=== PATIENT | female | born 1975 | race Caucasian/White ===

== ENCOUNTER → 2017-07-17 | Outpatient (CLI) | payer MEDICARE, MEDICAID ==
[2017-06-08 08:41] VITALS: BMI 35.5
[~2017-07-17] MED LIST: ACE500 PO; ACET-1966 PO; ACET-2043 PO; ASPI-715 PO; BAC10 PO; BISA-236 RC; BO30S PR; CALC-495 PO; CALC-520 PO; CEFT1VIA52 IM; CEFU250T11 PO; CEPH-312 PO; CEPH500T7 PO; CETI-169 PO; CHLO15MO2 MM; CHLO1LIQ2 PO; CHOL10005 PO; CHOL100058 PO; CRAN450C PO; DEXLAN60PT PO; DEXT1DRO15 OU; DIA10 PO; DIAZ-311 PO; DULO60CA56 PO; ESCI20TA38 PO; FENT1PAT12 TD; FENT1PAT40 TD; FLUT16SP19 NS; GAB300 PO; GABA-547 PO; GABA-549 PO; IBUP600T22 PO; IMIP10TA17 PO; LACT100C2 PO; LACT1CAP64 PO; LEV500 PO; LEVO-85 PO; LEVO750T27 PO; LEVO750T44 PO; LORA-629 PO; LORA-630 PO; LORA-799 PO; MAGIC PO; MEDR150D IM; MELO-205 PO; MIRT-22 PO; MOM PO; MOX400 PO; MULT-1203 PO; MULT-1335 PO; NIT100 PO; NORE0.3520 PO; NYST60PO9 TP; OMEP-125 PO; ONDA4TAB PO; ONDA4TAB97 PO; ONDA8TAB97 PO; ONDA8TAB98 PO; OXY5 PO; OXYB5TAB80 PO; OXYB5TAB86 PO; OXYC-373 PO; OXYC10TA67 PO; OXYIR PO; OXYXL5 PO; PANT40TA13 PO; POLY119P28 PO; POLY17PO25 PO; POTA-53 PO; PREG75CA60 PO; RANI-445 PO; SERT-179 PO; SODI126M; TRAZ-133 PO; WARF-18 PO; WARF10TA34 PO; WARF4TAB54 PO; WARF6TAB36 PO; [UNRECOGNIZED DRUG - CODE] FT; [UNRECOGNIZED DRUG - CODE] PO; [UNRECOGNIZED DRUG - CODE] PO; [UNRECOGNIZED DRUG - CODE] PO; [UNRECOGNIZED DRUG - CODE] TP
== END ==
LOC: AMB 04:45
PROVIDERS: ATTEND Nurse Practitioner
DX: J18.9 Pneumonia, unspecified organism (principal); G82.50 Quadriplegia, unspecified
CPT/HCPCS: A0425; A0428

== ENCOUNTER → 2017-07-17 | Outpatient (CLI) | payer MEDICARE, MEDICAID ==
[2017-06-08 08:41] VITALS: BMI 35.5
== END ==
LOC: AMB 01:43
PROVIDERS: ATTEND Nurse Practitioner
DX: R09.02 Hypoxemia (principal); R53.81 Other malaise; Z87.440 Personal history of urinary (tract) infections; Z74.01 Bed confinement status
CPT/HCPCS: A0425; A0429

== ENCOUNTER 2017-12-24 18:17 | Emergency (ER) | payer MEDICARE, MEDICAID ==
[2017-06-08 08:41] VITALS: Wt 83.9 kg
[~2017-12-24 18:17] MED LIST changes: -CETI-176 PO; -[UNRECOGNIZED DRUG - CODE] TP
--- NOTE | 2017-12-24 18:34 | ER Report ---
History and Physical Time Seen By MD: 18:30 Hx. of Stated Complaint: PATIENT HAS SEVERAL LACERATIONS FROM HER UNDERWIRE BRA, HER DOCTOR WANTED HER TO BE CHECKED OUT. HPI/ROS CHIEF COMPLAINT: Skin breakdown HISTORY OF PRESENT ILLNESS: This is a 41-year-old female, a resident of the [facility] who is transported via EMS to the emergency department for concerns of skin breakdown. According to [facility] staff the patient had an underwire bra that cut into her skin. Patient is a quadriplegic and has no sensation. No other concerns at this time no nausea, vomiting, diarrhea, shortness of breath or chest pain. REVIEW OF SYSTEMS: Respiratory: No cough, no dyspnea. Cardiovascular: No chest pain, no palpitations. Gastrointestinal: No vomiting, no abdominal pain. Musculoskeletal: No back pain. Integumentary: As above. Allergies: Coded Allergies: sulfamethoxazole (Verified Allergy, Mild, RASH, 12/24/17) trimethoprim (Verified Allergy, Mild, RASH, 12/24/17) piperacillin (Verified Adverse Reaction, Mild, reddness to face and neck, 12/24/17) tazobactam (Verified Adverse Reaction, Mild, reddness to face and neck, ) Home Meds Active Scripts Oxycodone Hcl/Acetaminophen (OXYCODONE-ACETAMINOPHEN 5-325) 1 Each Tablet, 1 EACH PO QID Y for pain, #120 TAB Prov:ESTELITA RICHARDS APRNP-C 12/10/17 Pregabalin (LYRICA) 75 Mg Capsule, 1 CAP PO BID, #60 CAPSULE 5 Refills Prov:ESTELITA RICHARDS APRN IT ARCHITECTURE ANALYST-C 12/07/17 Fentanyl (Fentanyl) 1 Each Patch.td72, 75 MCG TD Q72H, #10 PATCH.72H Prov:ESTELITA RICHARDS APRN IT ARCHITECTURE ANALYST-C 12/04/17 Belladonna Alkaloids/Opium (BELLADONNA-OPIUM 16.2-30 SUPP) 30 Mg Supp, 30 MG MN BID Y for pain/spasm, #60 SUPP Prov:ESTELITA RICHARDS APRN IT ARCHITECTURE ANALYST-C 12/02/17 Diazepam (DIAZEPAM) 10 Mg Tablet, 10 MG PO TID, #90 TAB 3 Refills Prov:ESTELITA RICHARDS APRN IT ARCHITECTURE ANALYST-C 09/28/17 Meloxicam (MELOXICAM) 7.5 Mg Tablet, 7.5 MG PO QDAY Y for pain, #0 Prov:JOEY CARPENTER MD 03/28/16 Reported Medications Miconazole Nitrate (DIANNA ANTIFUNGAL) 142 Gm Cream..g., 1 EMMANUEL TP PRN 12/24/17 Cetirizine Hcl (ZYRTEC) 10 Mg Tablet, 5 MG PO QDAY, TAB 12/24/17 Ondansetron (ZOFRAN ODT) 4 Mg Tab.rapdis, 4 MG PO PRN, TAB.KWADWO 07/13/17 Medroxyprogesterone Acet 150 Mg (DEPO-PROVERA 150 MG) 150 Mg/1 Ml Disp.syrin, 150 MG IM 07/13/17 Imipramine Hcl (IMIPRAMINE HCL) 10 Mg Tablet, 20 MG PO HS 06/07/17 Multivitamin With Minerals (MULTIPLE VITAMIN) 1 Each Tablet, 1 EACH PO QDAY, TAB 06/07/17 Cholecalciferol (Vitamin D3) (VITAMIN D3) 1,000 Unit Tablet, 2000 UNIT PO QDAY, TAB 06/07/17 Bisacodyl (DULCOLAX) 10 Mg Supp.rect, 10 MG RC QODAY Y for CONSTIPATION, SUPP.RECT 03/26/16 Acetaminophen (TYLENOL) 325 Mg Tablet, 650 MG PO Q6H Y for PAIN, TAB 03/26/16 Oxybutynin Chloride (OXYBUTYNIN CHLORIDE ER) 5 Mg Tab.er.24, 5 MG PO QDAY, TAB.SA 03/26/16 Duloxetine Hcl (CYMBALTA) 60 Mg Capsule.dr, 60 MG PO QDAY, #5 CAP 03/24/16 Lactobacillus Acidophilus (Acidophilus) 100 Mg (1 Billion Cell) Capsule, 1 TAB PO BID 10/26/15 Nystatin (NYSTOP) 60 Gm Powder, 1 GM TP 09/25/14 Polyethylene Glycol 3350 (MIRALAX) 17 Gm Powd.pack, 17 GM PO DAILY 09/25/14 Omeprazole (OMEPRAZOLE) 20 Mg Capsule.dr, 1 CAP PO Q MON-WED-THU TAKE ONE CAPSULE BY MOUTH ONCE A DAY 05/30/13 Baclofen (Lioresal) 10 Mg Tab, 20 MG PO TID 09/01/12 Discontinued Reported Medications Cran/Vitc/Mannose/Inulin/Brom (UTI-STAT LIQUID) 3,875 Mg/30 Ml Liquid, 3875 MG PO BID 06/07/17 Cranberry Fruit Concentrate (CRANBERRY) 450 Mg Capsule, 450 MG PO TID, CAPSULE 06/07/17 Escitalopram Oxalate (LEXAPRO) 20 Mg Tablet, 10 MG PO QDAY, TAB 06/07/17 Loratadine (LORATADINE) 10 Mg Tablet, 10 MG PO QDAY 03/26/16 Norethindrone (TIP-BE) 0.35 Mg Tablet, 0.35 MG PO DAILY 09/26/14 Discontinued Scripts Cefuroxime Axetil (CEFUROXIME) 250 Mg Tablet, 250 MG PO BID for infection, #14 TAB Prov:GUZMAN GONZALEZ DO 07/17/17 Levofloxacin 750 Mg Tab (LEVAQUIN 750 MG TAB) 750 Mg Tablet, 750 MG PO DAILY, # 7 TAB 0 Refills Prov:MARCIE WAHL MD 06/09/17 Past Medical/Surgical History Patient has a past medical and surgical history of DVTs, a trach secondary to quadriplegia, PEG tube, neurogenic bladder, suprapubic catheter, frequent urinary tract infections, C5-C6 fracture, wears glasses as needed, history of decubitus ulcers, depression, anorexia, anxiety, cervical spine surgery. Reviewed Nurses Notes: Yes Hx Smoking: Yes Smoking Status: Former Smoker Exposure to Second Hand Smoke?: No Hx Substance Use Disorder: No Hx Alcohol Use: No Constitutional Vital Sign - Last 24 Hours 12/24/17 12/24/17 12/24/17 12/24/17 18:21 18:23 18:30 18:32 Temp 99.2 Pulse 96 92 Resp 16 B/P (MAP) 124/74 124/74 (91) 105/54 (71) Pulse Ox 91 85 O2 Delivery Room Air 12/24/17 12/24/17 12/24/17 12/24/17 19:00 19:30 20:00 20:30 Pulse ??? B/P (MAP) 99/60 (73) 107/69 (82) 93/54 (67) 96/50 (65) Physical Exam General Appearance: The patient is alert, has no immediate need for airway protection and no current signs of toxicity. Eyes: Pupils equal and round no injection. Respiratory: Chest is non tender, lungs are clear to auscultation. Cardiac: regular rate and rhythm. Gastrointestinal: Abdomen is soft and non tender, no masses, bowel sounds normal. Musculoskeletal: Neck: Neck is supple and non tender. Extremities have full range of motion and are non tender. Skin: Mild fungal infection under both lateral breasts with redness and some excoriation. There is a 10cm long area of breakdown under the right breast, with adipose tissue and what appears to be facia exposed, linear in fashion, following the contour under the breast. There is a 5cm long, linear in fashion, under the left breast, not as extensive as the right, penetrating into the subcutaneous tissue. There are no signs of cellulitis. DIFFERENTIAL DIAGNOSIS: After history and physical exam differential diagnosis was considered for fungal infection, decubitus ulcer, skin breakdown and cellulitis. Medical Decision Making ED Course/Re-evaluation ED Course The patient was admitted to a room. A history and physical were obtained. Differential diagnoses were considered. After discussion with patient she didn' t have any idea that there were some areas of concern under her breasts until tonight. The physical exam revealed candidiasis under the breasts bilaterally with some potentially significant skin breakdown that appears to have been developing for some time, no signs of cellulitis. There is an area underneath both breasts that are very concerning for ulcerations and I did tell the patient that she will need to follow-up with the wound care clinic at the hospital for further evaluation and treatment of the skin breakdown. This was written the patient's discharge instructions and will care center must follow -up with the wound clinic tomorrow. I did not want to add a skin barrier or powder for the with the yeast infection underneath the breasts, as I was concerned that this would complicate the wound healing. We did dry the moist areas underneath the breasts, ABD pads were placed underneath the breast to absorb moisture. This does not appear to be the underwire from the bra cutting into the skin. This appears to be an area that has been breaking down for some time. The patient had no further questions or concerns at this time and was transferred back to the [facility]. A written order was sent with patient for the wound care clinic treatment and evaluation. The patient had no other concerns at this time. Decision to Disposition Date: December 24, 2017 Decision to Disposition Time: 20:09 Depart Departure Latest Vital Signs Vital Signs Date Time Temp Pulse Resp B/P (MAP) Pulse Ox O2 Delivery O2 Flow Rate FiO2 12/24/17 20:30 ??? 96/50 (65) 12/24/17 18:32 85 12/24/17 18:21 99.2 16 Room Air Impression: Primary Impression: Candidiasis of breast Additional Impression: Skin breakdown Condition: Improved Disposition: ASSISTED LIVING FACILITY Patient Instructions: Skin Yeast Infection (ED) Additional Instructions: Drink plenty of water. Get plenty of rest. Follow up with [facility] wound care first thing in the morning 12/25/17, the staff at [facility] must call first thing in the morning, tell them you were seen and evaluated in the ED and need to follow up tomorrow. Wound care phone number, the same as physical therapy, [phone]. There is no need for antibiotics at this time. I do not want to add an antifungal until you are evaluated by the wound care team at which time your primary care provider may become involved and order something if the wound care team feels it is warranted. Keep the areas of the breast dry and exposed to air to help with the fungal infection. No bra or tightfitting clothing over the breasts. Continue current medications as directed. Return to the ED for any other concerns or worsening symptoms. Problem Qualifiers JULIÁN BISWAS-SHARON December 24, 2017 18:34
[2017-12-24 20:30] VITALS: BP 96/50
[2017-12-24] MEDS ORDERED: [UNRECOGNIZED DRUG - CODE] TP (20:41)
[2017-12-24] MEDS ORDERED: CETI-176 PO (20:41)
== END 2017-12-24 20:38 | disposition home or self-care (01) ==
LOC: ER 18:24
DX: B37.2 Candidiasis of skin and nail (principal); L98.8 Other specified disorders of the skin and subcutaneous tissue
CPT/HCPCS: 99282

== ENCOUNTER → 2017-12-24 | Outpatient (CLI) | payer MEDICARE, MEDICAID ==
[2017-06-08 08:41] VITALS: BMI 35.5
[~2017-12-24] MED LIST changes: +CETI-176 PO; -WARF-18 PO; +WARF10TA10 PO; -WARF10TA34 PO; +WARF4TAB15 PO; -WARF4TAB54 PO; +WARF5TAB23 PO; +WARF6TAB13 PO; -WARF6TAB36 PO; +[UNRECOGNIZED DRUG - CODE] TP
== END ==
LOC: AMB 17:58
PROVIDERS: ATTEND Nurse Practitioner
DX: S21.0 Open wound of breast (principal); S21.021A Laceration with foreign body of right breast, initial encounter; S27.9XXA Injury of unspecified intrathoracic organ, initial encounter; W45.8XXA Other foreign body or object entering through skin, initial encounter
CPT/HCPCS: A0425; A0434

== ENCOUNTER → 2017-12-24 | Outpatient (CLI) | payer MEDICARE, MEDICAID ==
[2017-06-08 08:41] VITALS: BMI 35.5
== END ==
LOC: AMB 20:32
PROVIDERS: ATTEND Nurse Practitioner
DX: Z74.01 Bed confinement status (principal)
CPT/HCPCS: A0425; A0428

== ENCOUNTER → 2017-12-25 | Outpatient (REF) | payer MEDICARE, MEDICAID ==
[2017-06-08 08:41] VITALS: BMI 35.5
[~2017-12-25] MED LIST changes: +CETI-176 PO; +[UNRECOGNIZED DRUG - CODE] TP
== END ==
LOC: ZZLCC 17:15
PROVIDERS: ATTEND Nurse Practitioner Family
DX: D64.9 Anemia, unspecified (principal); E87.6 Hypokalemia; G62.9 Polyneuropathy, unspecified; N18.9 Chronic kidney disease, unspecified
CPT/HCPCS: 82040; 82247; 82310; 82374; 82435; 82565; 82947; 84075; 84132; 84155; 84295; 84450; 84460; 84520

== ENCOUNTER → 2018-01-15 | Outpatient (REF) | payer MEDICARE, MEDICAID ==
[2017-06-08 08:41] VITALS: BMI 35.5
== END ==
LOC: ZZLCC 17:54
PROVIDERS: ATTEND Nurse Practitioner Family
DX: N39.0 Urinary tract infection, site not specified (principal); B96.20 Unspecified Escherichia coli [E. coli] as the cause of diseases classified elsewhere; B96.89 Other specified bacterial agents as the cause of diseases classified elsewhere
CPT/HCPCS: 81001; 87077; 87088; 87186

== ENCOUNTER → 2018-02-25 | Outpatient (REF) | payer MEDICARE, MEDICAID ==
[2017-06-08 08:41] VITALS: BMI 35.5
[2018-02-25 15:34] LABS: PLATELET COUNT, AUTOMATED 343 K/uL (150-450)
[2018-02-25 15:46] LABS: LDL CHOLESTEROL 82 mg/dl
== END ==
LOC: ZZLCC 15:17
PROVIDERS: ATTEND Nurse Practitioner Family
DX: D64.9 Anemia, unspecified (principal); E87.6 Hypokalemia; F32.9 Major depressive disorder, single episode, unspecified; F41.9 Anxiety disorder, unspecified; G62.9 Polyneuropathy, unspecified; H04.129 Dry eye syndrome of unspecified lacrimal gland; I82.409 Acute embolism and thrombosis of unspecified deep veins of unspecified lower extremity; J18.9 Pneumonia, unspecified organism; J30.9 Allergic rhinitis, unspecified; K21.9 Gastro-esophageal reflux disease without esophagitis; K59.00 Constipation, unspecified; M24.576 Contracture, unspecified foot; N18.9 Chronic kidney disease, unspecified; N39.0 Urinary tract infection, site not specified; R25.1 Tremor, unspecified; R27.9 Unspecified lack of coordination; R41.82 Altered mental status, unspecified; R51 Headache; R53.1 Weakness; R63.4 Abnormal weight loss; R79.1 Abnormal coagulation profile
CPT/HCPCS: 82040; 82247; 82310; 82374; 82435; 82465; 82565; 82947; 83718; 84075; 84132; 84155; 84295; 84450; 84460; 84478; 84520; 85025

== ENCOUNTER → 2018-05-06 | Outpatient (REF) | payer MEDICARE, MEDICAID ==
[2017-06-08 08:41] VITALS: BMI 35.5
== END ==
LOC: ZZLCC 08:50
PROVIDERS: ATTEND Nurse Practitioner Family
DX: R73.01 Impaired fasting glucose (principal)
CPT/HCPCS: 83036

== ENCOUNTER → 2018-08-01 | Outpatient (CLI) | payer MEDICARE, MEDICAID ==
[2017-06-08 08:41] VITALS: BMI 35.5
[~2018-08-01] MED LIST changes: +DIAZ-308 PO
== END ==
LOC: AMB 13:45
PROVIDERS: ATTEND Nurse Practitioner
DX: T83.028A Displacement of other urinary catheter, initial encounter (principal); G82.50 Quadriplegia, unspecified
CPT/HCPCS: A0425; A0429

== ENCOUNTER → 2018-08-01 | Outpatient (CLI) | payer MEDICARE, MEDICAID ==
[2017-06-08 08:41] VITALS: BMI 35.5
== END ==
LOC: AMB 15:31
PROVIDERS: ATTEND Nurse Practitioner
DX: G82.50 Quadriplegia, unspecified (principal)
CPT/HCPCS: A0425; A0428

== ENCOUNTER → 2018-09-02 | Outpatient (CLI) | payer MEDICARE, MEDICAID ==
[2017-06-08 08:41] VITALS: BMI 35.5
== END ==
LOC: AMB 09:39
PROVIDERS: ATTEND Nurse Practitioner
DX: G82.50 Quadriplegia, unspecified (principal)
CPT/HCPCS: A0425; A0428

== ENCOUNTER → 2018-12-27 | Outpatient (REF) | payer MEDICARE, MEDICAID ==
[2017-06-08 08:41] VITALS: BMI 35.5
[2018-12-27 17:35] LABS: PLATELET COUNT, AUTOMATED 352 K/uL (150-450)
== END ==
LOC: ZZLCC 16:46
PROVIDERS: ATTEND Nurse Practitioner Family
DX: R73.01 Impaired fasting glucose (principal); R51 Headache; Z79.899 Other long term (current) drug therapy
CPT/HCPCS: 82040; 82247; 82310; 82374; 82435; 82565; 82947; 83036; 84075; 84132; 84155; 84295; 84443; 84450; 84460; 84520; 85025

== ENCOUNTER 2019-01-15 18:27 | Inpatient (IN) | payer MEDICARE, MEDICAID ==
[~2019-01-15] VITALS: Ht 157.5 cm; Wt 95.8 kg
[~2019-01-15 18:27] MED LIST changes: -BACL-51 PO; -CEF300 PO; -CETI5TAB25 PO; -CHLO473M14 ASDIRECTED; -DULO30CA6 PO; -LACT1CAP17 PO; -SODI51CR DT; -TRIA10.8
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
[2019-01-15] MEDS ORDERED: NS(*) 0.9% 1000 ML BAG 1,000 ML IV ONE ×2 (18:50→19:50)
--- NOTE | 2019-01-15 19:16 | RADIOLOGY IMAGING REPORT ---
[place] [facility] [place] NAME: Nilo Witt : 1975 MR: [id number] V: [id number] EXAM DATE: ORDERING PHYSICIAN: EULALIA SANDERS TECHNOLOGIST: [place] [facility] [place] : 1975 Visit/Account:[id number] Date of Sevice: 01/15/2019 Exam type: CHEST SINGLE AP History: Altered mental status Comparison: 09/02/2018. Findings: Opacification at the left lung base appears stable from prior. Interstitial markings are prominent b ut appear to be chronic. Right lung is well-expanded. No pleural effusion or pneumothorax. Heart is enlarged. The osseous structures are unremarkable. IMPRESSION: 1. Opacification of left lung base appears to be chronic. No evidence for acute cardiopulmonary dis ease. 2. Cardiomegaly and pulmonary vascular prominence also appears chronic. Report Dictated By: Sunil Garcia MD at 01/15/2019 7:09 PM Report E-Signed By: Sunil Garcia MD at 01/15/2019 7:12 PM WSN:[id number]
[2019-01-15 19:24] LABS: PLATELET COUNT, AUTOMATED 267 K/uL (150-450)
[2019-01-15] MEDS ORDERED: NS 0.9% IVPB ONE ×2 (19:50→20:15)
[2019-01-15] MEDS ORDERED: CEFEPIME HCL IVPB ONE (19:50)
[2019-01-15] MEDS ORDERED: MINI IVPB ONE (19:50)
[2019-01-15] MEDS ORDERED: VANCOMYCIN(*) 1 GM VIAL 2.25 GM in NS(*) 0.9% 250 ML BAG 250 ML IVPB ONE (19:50)
[2019-01-15] MEDS ORDERED: VANCOMYCIN IVPB ONE (20:15)
[2019-01-15] MEDS ORDERED: MEDR150D IM (20:30)
[2019-01-15] MEDS ORDERED: CETI5TAB25 PO (20:30)
[2019-01-15] MEDS ORDERED: CHLO473M14 ASDIRECTED (20:30)
[2019-01-15] MEDS ORDERED: BACL-51 PO (20:38)
[2019-01-15] MEDS ORDERED: TRIA10.8 (20:38)
[2019-01-15] MEDS ORDERED: DULO30CA6 PO (20:38)
[2019-01-15] MEDS ORDERED: LACT1CAP17 PO (20:38)
[2019-01-15] MEDS ORDERED: SODI51CR DT (20:40)
[2019-01-15] MEDS ORDERED: ACETAMINOPHEN(*)1000 MG/100 ML 100 ML IVPB ONE (21:05)
[2019-01-15] MEDS ORDERED: MORPHINE 4 MG/ML SDV IVP ONE (21:55)
[2019-01-15] MEDS ORDERED: fentaNYL 25 MCG TDSY TD SCH (22:10)
[2019-01-15] MEDS ORDERED: fentaNYL 50 MCG TDSY TD SCH (22:10)
[2019-01-15] MEDS ORDERED: BISACODYL 10 MG SUPP PR PRN (22:10)
[2019-01-15] MEDS ORDERED: INFLUENZA VIRUS VAC 0.5ML SYR IM ONLY ONE (22:20)
[2019-01-15 22:24] VITALS: BP 82/62
[2019-01-15] MEDS ORDERED: PATCH REMOVAL 1 EA TP SCH ×3 (22:30→22:35)
[2019-01-15 22:42] VITALS: BP 77/50
--- NOTE | 2019-01-15 23:04 | History & Physical ---
History of Present Illness Chief Complaint Change in mental status. History of Present Illness The patient is a 43 year old female resident of [facility] ([facility]) with PMH significant for quadriplegia and chronic suprapubic catheter who presents with altered mental status. The patient is unable to give a complete history. Per the SBAR sheet sent from [facility], the patient developed a change in mental status and also had blood in her urine. 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 Her last urine culture on record in the [facility] EMR was about a year ago and grew E. coli which was pansensitive as well as MRSA. The patient complained of a headache when awakened. It was unclear if this was a new issue for her. ER nursing staff called [facility] to inquire and [facility] staff reports that she has frequent headaches and has been complaining of headache over the past 2-3 days which is not out of the ordinary for her. While in the ER, she was given IV Tylenol with resolution of her headache. The patient was not noted to cough but her O2 saturations were low on admission to the ER. History Problems: (1) Quadriplegia, C5-C7, incomplete Status: Chronic (2) Suprapubic catheter Status: Chronic (3) Chronic pain Status: Chronic (4) Depression with anxiety Status: Chronic (5) DVT (deep venous thrombosis) Status: Chronic (6) GI bleed Status: Resolved (7) Dysphagia Status: Chronic Comment: Noted in EMR. Patient's diet listed as "diet as tolerated" on [facility] records. (8) Decubitus ulcer of sacral area Status: Resolved Home Meds Active Scripts Diazepam (DIAZEPAM) 5 Mg Tablet, 5 MG PO TID, #90 TAB 2 Refills Prov:ESTELITA RICHARDS APRN DISPATCHER [employer] 01/06/19 Fentanyl (Fentanyl) 1 Each Patch.td72, 75 MCG TD Q72H, #10 PATCH.72H Prov:ESTELITA RICHARDS APRN DISPATCHER [employer]-C 01/04/19 Oxycodone Hcl/Acetaminophen (OXYCODONE-ACETAMINOPHEN 5-325) 1 Each Tablet, 1 EACH PO QID PRN for pain, #120 TAB Prov:ESTELITA RICHARDS APRN DISPATCHER [employer] 12/17/18 Pregabalin (LYRICA) 75 Mg Capsule, 1 CAP PO BID, #60 CAPSULE 5 Refills Prov:ESTELITA RICHARDS APRN DISPATCHER [employer]-C 11/29/18 Belladonna Alkaloids/Opium (BELLADONNA-OPIUM 16.2-30 SUPP) 30 Mg Supp, 30 MG WI BID PRN for pain/spasm, #60 SUPP Prov:ESTELITA RICHARDS APRN DISPATCHER [employer] 11/15/18 Meloxicam (MELOXICAM) 7.5 Mg Tablet, 7.5 MG PO QDAY PRN for pain, #0 Prov:JOEY CARPENTER MD 03/28/16 Reported Medications Sodium Fluoride (PREVIDENT 5000 PLUS) 51 Gm Cream..g., GM DT DIRECTED Apply paste per toothbrush bid. 01/15/19 Triamcinolone Acetonide (Nasacort) 10.8 Ml Balsam, 2 SPRAY NA DAILY 01/15/19 Duloxetine HCl (Duloxetine HCl) 30 Mg Capsule.dr, 3 CAP PO DAILY 01/15/19 Lactobacillus Combo No.13 (Probiotic Pearls Complete) 1 Each Capsule.dr, 2 CAP PO BID 01/15/19 Baclofen (BACLOFEN) 20 Mg Tablet, 20 MG PO TID, #15 TAB 01/15/19 Medroxyprogesterone Acet 150 Mg (DEPO-PROVERA 150 MG) 150 Mg/1 Ml Disp.syrin, 150 MG IM T1SHDDDM, DIS.SYR EVERY 3 MONTHS 01/15/19 Chlorhexidine Gluconate (Peridex) 0.12 % Mouthwash, ASDIRECTED Dip toothbrush in solution at night and brush teeth again after brushing with toothpaste. 01/15/19 Cetirizine Hcl (CETIRIZINE HCL) 5 Mg Tablet, 5 MG PO QDAY, TAB 01/15/19 Miconazole Nitrate (DIANNA ANTIFUNGAL) 142 Gm Cream..g., 1 EMMANUEL TP BID 12/24/17 Imipramine Hcl (IMIPRAMINE HCL) 10 Mg Tablet, 20 MG PO HS 06/07/17 Multivitamin With Minerals (MULTIPLE VITAMIN) 1 Each Tablet, 1 EACH PO QDAY, TAB 06/07/17 Cholecalciferol (Vitamin D3) (VITAMIN D3) 1,000 Unit Tablet, 2000 UNIT PO QDAY, TAB 06/07/17 Bisacodyl (DULCOLAX) 10 Mg Supp.rect, 10 MG RC QODAY PRN for CONSTIPATION, SUPP.RECT 03/26/16 Acetaminophen (TYLENOL) 325 Mg Tablet, 650 MG PO BID PRN for PAIN, TAB 03/26/16 Oxybutynin Chloride (OXYBUTYNIN CHLORIDE ER) 5 Mg Tab.er.24, 5 MG PO QDAY, TAB.SA 03/26/16 Nystatin (NYSTOP) 60 Gm Powder, 1 GM TP PRN for irritation Apply to affected areas topically as needed for irritation. 09/25/14 Polyethylene Glycol 3350 (MIRALAX) 17 Gm Powd.pack, 17 GM PO DAILY 09/25/14 Omeprazole (OMEPRAZOLE) 20 Mg Capsule.dr, 1 CAP PO Q THU-THU-THU TAKE ONE CAPSULE BY MOUTH ONCE A DAY 05/30/13 Discontinued Reported Medications Cetirizine Hcl (ZYRTEC) 10 Mg Tablet, 5 MG PO QDAY, TAB 12/24/17 Ondansetron (ZOFRAN ODT) 4 Mg Tab.rapdis, 4 MG PO PRN, TAB.KWADWO 07/13/17 Medroxyprogesterone Acet 150 Mg (DEPO-PROVERA 150 MG) 150 Mg/1 Ml Disp.syrin, 150 MG IM 07/13/17 Duloxetine Hcl (CYMBALTA) 60 Mg Capsule.dr, 60 MG PO QDAY, #5 CAP 03/24/16 Lactobacillus Acidophilus (Acidophilus) 100 Mg (1 Billion Cell) Capsule, 1 TAB PO BID 10/26/15 Baclofen (Lioresal) 10 Mg Tab, 20 MG PO TID 09/01/12 Allergies: Coded Allergies: sulfamethoxazole (Verified Allergy, Mild, RASH, 01/15/19) trimethoprim (Verified Allergy, Mild, RASH, 01/15/19) piperacillin (Verified Adverse Reaction, Mild, reddness to face and neck, 01/15/19) tazobactam (Verified Adverse Reaction, Mild, reddness to face and neck, 01/15/19) Patient History: Unobtainable due to patient's condition Other Social/Family Hx The patient is a fpc resident of [facility] due to quadriplegia. She is single. She does not drink or smoke. Hx Smoking: Yes Smoking Status: Former Smoker Exposure to Second Hand Smoke?: No Hx Alcohol Use: No Hx Substance Use Disorder: No History of IV Drug Use: No Review of Systems Neurological: Other (Change in mental status over the past 24 hours.) Respiratory: No Cough Musculoskeletal: Pain (Hx of chronic pain.) Other Unable to get a complete ROS as patient with decreased mental status. Exam Vital Signs Vital Signs Date Time Temp Pulse Resp B/P (MAP) Pulse Ox O2 Delivery O2 Flow Rate FiO2 01/15/19 22:24 82/62 (69) 01/15/19 20:47 91 13 93 01/15/19 18:45 4.0 01/15/19 18:28 98.2 Nasal Cannula General Appearance: Other (Somnolent but does awaken and answer questions intermittently. Answers do not consistently make sense.) Eyes: PERRLA Cardiovascular: Regular Rate and Rhythm Respiratory: Clear to Auscultation (Anteriorly.) GI: Other (Obese, soft, nondistended with quiet bowel sounds. Nontender to palpation throughout.) Musculoskeletal: Other (The patient complains of pain with any movement.) Extremities: Edema Integumentary: Other (Posterior L thigh with significant skin breakdown below the gluteal fold. No obvious drainage. Some redness noted appears to be due to pressure on the area. R posterior thigh with skin breakdown as well, less than the L side. L buttock with half dollar sized area of breakdown proximally. ) Psych: Other (Confused, somnolent.) Medical Decision Making Data Points Result Diagram: 01/15/19191401/15/191829 Item Value Date Time Urine Color Yellow 01/15/191834 Urine Clarity Cloudy 01/15/191834 Urine pH 6.0 pH 01/15/191834 Urine Specific [place] 1.020 01/15/191834 Urine Protein Trace mg/dL 01/15/191834 Urine Glucose (UA) Negative mg/dL 01/15/191834 Urine Ketones Negative mg/dL 01/15/191834 Urine Blood Moderate H 01/15/191834 Urine Nitrite Positive H 01/15/191834 Urine Bilirubin Negative 01/15/191834 Urine Urobilinogen 0.2 mg/dL 01/15/191834 Urine Leukocyte Esterase Large H 01/15/191834 Urine RBC 6 /HPF 6/8/19 1835 Urine WBC 183 /HPF 01/15/19 1835 Urine WBC Clumps Many /HPF 01/15/19 1835 Urine Squamous Epithelial Cells Many /LPF H 01/15/19 1835 Urine Bacteria Many /HPF H 01/15/19 1835 Urine Hyaline Casts Few /LPF 01/15/19 1835 Urine Mucus Few /HPF 01/15/19 1835 Urine Yeast (Budding) Few /HPF H 01/15/19 1835 Lactate 3.1 mmol/L H 01/15/19 1830 Calcium Level 8.7 mg/dl 01/15/19 1830 Total Bilirubin 0.8 mg/dl 01/15/19 1830 Aspartate Amino Transf (AST/SGOT) 65 U/L H 01/15/19 1830 Alanine Aminotransferase (ALT/SGPT) 64 U/L H 01/15/19 183 Alkaline Phosphatase 63 U/L 01/15/19 1830 Total Protein 6.9 g/dl 01/15/19 1830 Albumin 3.7 g/dl 01/15/19 183 Blood and urine cultures are pending. EKG / Imaging Imaging FACILITY: [facility] PATIENT NAME: Nilo Witt : 1975 MR: [id number] V: [id number] EXAM DATE: ORDERING PHYSICIAN: EULALIA SANDERS TECHNOLOGIST: Location: [facility] Patient: Nilo Witt : 1975 Visit/Account:[id number] Date of Sevice: 01/15/2019 Exam type: CHEST SINGLE AP History: Altered mental status Comparison: 09/02/2018. Findings: Opacification at the left lung base appears stable from prior. Interstitial markings are prominent but appear to be chronic. Right lung is well-expanded. No pleural effusion or pneumothorax. Heart is enlarged. The osseous structures are unremarkable. IMPRESSION: 1. Opacification of left lung base appears to be chronic. No evidence for acute cardiopulmonary disease. 2. Cardiomegaly and pulmonary vascular prominence also appears chronic. Report Dictated By: Sunil Garcia MD at 01/15/2019 7:09 PM Report E-Signed By: Sunil Garcia MD at 01/15/2019 7:12 PM WSN:[facility] Pre-Admit Course ED Medications Cefepime, Vancomycin, NS, IV Tylenol, IV morphine. Medical Record Review: Yes Assessment and Plan Problems: (1) Sepsis Onset Date: 09/25/2014 Status: Acute Assessment & Plan: Will admit and aggressively hydrate with IV fluids. She received cefepime 1 g in ER and will continue. She also received 2.25 g of Vanco in ER. Will continue Vanco q12 hours at 1.5g. Initial lactate was 3.1. Will repeat at 4 hours. Monitor closely. (2) Altered mental status Status: Acute Assessment & Plan: Most likely due to above. Will treat underlying infection. (3) Urinary tract infection Status: Acute Assessment & Plan: Recurrent. She has hx of MRSA and VRE. Her last culture a year ago grew E. coli (sensitive) and MRSA. She has been started on cefepime and Vanco. Urine and blood cultures are pending. (4) Hyperkalemia Status: Acute Assessment & Plan: She has mild elevation of her potassium. Will hydrate and recheck labs in am. (5) Decubitus skin ulcer Status: Acute Assessment & Plan: She has significant breakdown of the skin on her L posterior thigh below the gluteal fold. There is some breakdown on the R posterior thigh as well. Will have PT wound care see for recommendations. (6) Suprapubic catheter Status: Chronic Assessment & Plan: Catheter will need to be changed due to infection. (7) Chronic pain Status: Chronic Assessment & Plan: Continue fentanyl patch 75mcg q 72 hours with Percoct for breakthrough pain. Tylenol has been ordered as well. (8) Depression with anxiety Status: Chronic Assessment & Plan: Continue duloxetine 90mg daily. (9) DVT (deep venous thrombosis) Status: Chronic Assessment & Plan: Per the EMR, the patient has hx of DVT but also has hx of GI bleed. Will place on DVT prophylaxis with Lovenox 40mg daily. (10) Quadriplegia, C5-C7, incomplete Status: Chronic Assessment & Plan: Stable. Time Spent on Plan of Care: < 30 min Venous Thromboembolism Antithrombotics Is Pt On Any Antithrombotics?: Yes Exam Sepsis Risk: No Definite Risk Problem Qualifiers (1) Sepsis: Sepsis type: sepsis due to unspecified organism Qualified Codes: A41.9 - Sepsis, unspecified organism MARYA WAHL MD Jan 15, 2019 23:04
[2019-01-15] MEDS: NS(*) 0.9% 1000 ML BAG 1,000 ML IV PRN (23:10)
[2019-01-15 23:11] VITALS: BP 99/57
[2019-01-15 23:30] VITALS: BP 110/62
[2019-01-15] MEDS: NYSTATIN 100,000 U/GM PWD 15GM TP SCH (23:37)
[2019-01-16] VITALS (18 sets, daily range): BP systolic 81–133; BP diastolic 41–99; Ht 157.5 cm; Wt 95.8 kg
[2019-01-16] MEDS ORDERED: ACETAMINOPHEN(*)1000 MG/100 ML 100 ML IVPB SCH
[2019-01-16] MEDS: ACETAMINOPHEN(*)1000 MG/100 ML 100 ML IVPB PRN ×2 (03:10→18:10)
[2019-01-16] MEDS: NS(*) 0.9% 1000 ML BAG 1,000 ML IV PRN (06:25)
[2019-01-16] MEDS ORDERED: CEFEPIME HCL 1 GM VIAL IVP SCH (08:00)
[2019-01-16 08:10] LABS: PLATELET COUNT, AUTOMATED 192 K/uL (150-450)
[2019-01-16] MEDS ORDERED: CETIRIZINE HCL 10 MG TAB PO SCH (09:00)
[2019-01-16] MEDS ORDERED: CHOLECALCIFEROL 1000 UNIT TAB PO SCH (09:00)
[2019-01-16] MEDS ORDERED: MULTIVITAMINS TAB PO SCH (09:00)
[2019-01-16] MEDS ORDERED: VANCOMYCIN(*) 1 GM VIAL 1 GM, VANCOMYCIN (*) 0.5 GM VIAL 0.5 GM in NS(*) 0.9% 250 ML BA... IVPB SCH (09:30)
[2019-01-16] MEDS: CEFEPIME HCL 1 GM VIAL IVP SCH ×2 (09:52→21:07)
[2019-01-16] MEDS: VANCOMYCIN(*) 1 GM VIAL 1 GM, VANCOMYCIN (*) 0.5 GM VIAL 0.5 GM in NS(*) 0.9% 250 ML BA... IVPB SCH ×2 (09:52→21:07)
[2019-01-16] MEDS: POLYETHYLENE GLYCOL 17 GM PKT PO SCH (09:52)
[2019-01-16] MEDS: NYSTATIN 100,000 U/GM PWD 15GM TP SCH ×2 (09:53→21:08)
[2019-01-16] MEDS: FLUTICASONE PROP 0.05% 16 GM SCH (09:53)
[2019-01-16] MEDS: BACLOFEN 10 MG TAB PO SCH ×3 (09:56→21:07)
[2019-01-16] MEDS: ENOXAPARIN 40 MG/0.4ML SYR SC SCH (09:56)
[2019-01-16] MEDS: DULoxetine HCL 30 MG CAPCR PO SCH (09:57)
[2019-01-16] MEDS: LACTOBACILLUS ACIDOPHILUS TAB PO SCH ×2 (09:57→16:48)
[2019-01-16] MEDS: OXYBUTYNIN CHL XL 5 MG TABCR PO SCH (09:57)
[2019-01-16] MEDS: DIAZEPAM 5 MG TAB PO SCH ×3 (09:57→21:08)
[2019-01-16] MEDS: PREGABALIN 25 MG CAP PO SCH ×2 (09:58→21:08)
[2019-01-16] MEDS: oxyCODON/ACET (*)5/325MG (CII) 1 TAB TAB PO PRN ×2 (10:01→18:10)
--- NOTE | 2019-01-16 13:19 | Hospitalist Progress Note ---
Subjective Progress Notes Subjective She reports that she still feels poorly and having abdominal pain. She did order breakfast. Physical Exam Vital Signs Date Time Temp Pulse Resp B/P (MAP) Pulse Ox O2 Delivery O2 Flow Rate FiO2 01/16/19 12:19 97.6 100 20 112/78 (89) 94 Nasal Cannula 4.0 Intake and Output 01/16/19 07:00 Intake Total 5655 ml Output Total 920 ml Balance 4735 ml Intake Oral 400 ml IV Total 5255 ml Output Urine Total 920 ml # Bowel Movements 1 General Appearance: Alert, Awake, No Acute Distress Cardiovascular: Regular Rate and Rhythm Respiratory: Clear to Auscultation GI: Other (Distended. Soft.) Result Diagram: 01/16/19 0751 01/16/19 0751 Assessment and Plan Problems: (1) Sepsis Onset Date: 09/25/2014 Status: Acute Assessment & Plan: She presented with AMS. Initial lactate was 3.1, but it normalized after aggressive hydration. BP was initially low, but has improved with hydration. Antibiotics for UTI. (2) Urinary tract infection Status: Acute Assessment & Plan: Recurrent. Complicated by a chronic suprapubic catheter. She has hx of MRSA and VRE. Her last culture a year ago grew E. coli (sensitive) and MRSA. She has been started on cefepime and Vanco. Urine and blood cultures are pending. (3) Altered mental status Status: Resolved Assessment & Plan: Most likely due to above. (4) Decubitus skin ulcer Status: Acute Assessment & Plan: She has significant breakdown of the skin on her L posterior thigh below the gluteal fold. There is some breakdown on the R posterior thigh as well. Will have PT wound care see for recommendations. (5) Suprapubic catheter Status: Chronic Assessment & Plan: Catheter will need to be changed due to infection. (6) Chronic pain Status: Chronic Assessment & Plan: Continue fentanyl patch 75mcg q 72 hours with Percoct for breakthrough pain. Tylenol has been ordered as well. (7) Depression with anxiety Status: Chronic Assessment & Plan: Continue duloxetine 90mg daily. (8) DVT (deep venous thrombosis) Status: Chronic Assessment & Plan: Per the EMR, the patient has hx of DVT but also has hx of GI bleed. Will place on DVT prophylaxis with Lovenox 40mg daily. (9) Quadriplegia, C5-C7, incomplete Status: Chronic Assessment & Plan: Stable. Exam Sepsis Risk: No Definite Risk Problem Qualifiers (1) Sepsis: Sepsis type: sepsis due to unspecified organism Qualified Codes: A41.9 - Sepsis, unspecified organism JOEY CARPENTER MD Jan 16, 2019 13:19
[2019-01-16] MEDS ORDERED: GI COCKTAIL 60 ML BTL PO PRN (16:35)
[2019-01-16] MEDS ORDERED: PROMETHAZINE 25 MG/ML 1 ML AMP IVP PRN (16:35)
[2019-01-16] MEDS: IMIPRAMINE HCL 10 MG TAB PO SCH (21:08)
[2019-01-17 03:30] VITALS: BP 106/68
[2019-01-17] MEDS: ACETAMINOPHEN(*)1000 MG/100 ML 100 ML IVPB PRN ×2 (05:08→10:50)
[2019-01-17] MEDS: DIAZEPAM 5 MG TAB PO SCH ×3 (08:36→21:16)
[2019-01-17] MEDS: oxyCODON/ACET (*)5/325MG (CII) 1 TAB TAB PO PRN ×3 (08:37→17:01)
[2019-01-17] MEDS: BACLOFEN 10 MG TAB PO SCH ×3 (08:37→21:16)
[2019-01-17] MEDS: PREGABALIN 25 MG CAP PO SCH ×2 (08:37→21:16)
[2019-01-17] MEDS: CEFEPIME HCL 1 GM VIAL IVP SCH (09:41)
--- NOTE | 2019-01-17 10:41 | Hospitalist Progress Note ---
Subjective Progress Notes Subjective This patient was admitted for urinary infection. She had no acute issues overnight. Patient Complains of: Cardiovascular: No: Chest Pain Respiratory: No: Shortness of Breath Physical Exam Vital Signs Date Time Temp Pulse Resp B/P (MAP) Pulse Ox O2 Delivery O2 Flow Rate FiO2 01/17/19 03:30 97.9 85 16 106/68 (81) 94 Nasal Cannula 3.0 Intake and Output 01/17/19 07:00 Intake Total 1606 ml Output Total 1950 ml Balance -344 ml Intake Oral 240 ml IV Total 1366 ml Output Urine Total 1950 ml # Bowel Movements 1 Cardiovascular: Regular Rate and Rhythm Respiratory: Clear to Auscultation Result Diagram: 01/16/19 0751 01/16/19 0751 Assessment and Plan Problems: (1) Sepsis Onset Date: 09/25/2014 Status: Acute Assessment & Plan: She presented with AMS. Initial lactate was 3.1, but it normalized after aggressive hydration. BP was initially low, but has improved with hydration. Antibiotics for UTI. (2) Urinary tract infection Status: Acute Assessment & Plan: Her urine culture is growing E. coli. She was on empiric treatment with cefepime and vancomycin. The vancomycin was stopped today. (3) Altered mental status Status: Resolved Assessment & Plan: Most likely due to above. (4) Decubitus skin ulcer Status: Acute Assessment & Plan: She has significant breakdown of the skin on her L posterior thigh below the gluteal fold. There is some breakdown on the R posterior thigh as well. Will have PT wound care see for recommendations. (5) Suprapubic catheter Status: Chronic Assessment & Plan: Catheter will need to be changed due to infection. (6) Chronic pain Status: Chronic Assessment & Plan: Continue fentanyl patch 75mcg q 72 hours with Percoct for breakthrough pain. Tylenol has been ordered as well. (7) Depression with anxiety Status: Chronic Assessment & Plan: Continue duloxetine 90mg daily. (8) DVT (deep venous thrombosis) Status: Chronic Assessment & Plan: Per the EMR, the patient has hx of DVT but also has hx of GI bleed. Will place on DVT prophylaxis with Lovenox 40mg daily. (9) Quadriplegia, C5-C7, incomplete Status: Chronic Assessment & Plan: Stable. Exam Sepsis Risk: No Definite Risk Problem Qualifiers (1) Sepsis: Sepsis type: sepsis due to unspecified organism Qualified Codes: A41.9 - Sepsis, unspecified organism LESLIE GREGORIO DO Jan 17, 2019 10:40
[2019-01-17] MEDS: CHOLECALCIFEROL 1000 UNIT TAB PO SCH (10:51)
[2019-01-17] MEDS: MULTIVITAMINS TAB PO SCH (10:52)
[2019-01-17] MEDS: DULoxetine HCL 30 MG CAPCR PO SCH (10:52)
[2019-01-17] MEDS: LACTOBACILLUS ACIDOPHILUS TAB PO SCH ×2 (10:52→17:02)
[2019-01-17] MEDS: OXYBUTYNIN CHL XL 5 MG TABCR PO SCH (10:52)
[2019-01-17] MEDS: CETIRIZINE HCL 10 MG TAB PO SCH (10:52)
[2019-01-17] MEDS: POLYETHYLENE GLYCOL 17 GM PKT PO SCH (10:53)
[2019-01-17] MEDS: ENOXAPARIN 40 MG/0.4ML SYR SC SCH (10:53)
[2019-01-17] MEDS: NYSTATIN 100,000 U/GM PWD 15GM TP SCH ×2 (10:53→21:17)
[2019-01-17] MEDS: FLUTICASONE PROP 0.05% 16 GM SCH (10:53)
--- NOTE | 2019-01-17 13:17 | Medical Nutrition Therapy ---
Nutrition Anthropometrics Height (Inches): 62.00 Height (Calculated Centimeters: 157.652701 Weight (Pounds): 211 Weight (Calculated Kilograms): 95.821 BMI: 38.6 Erick Nutrition Score: Probably Inadequate Erick Nutrition Risk Score: 10 Dietary Referral Nutrition Risk Factors: Diff. Swallowing Nutrition Risk Comment: Physical Findings Physical Appearance: Obese BMI 30-39 Skin Appearance Skin Appearance: Edema Edema Location Modifier: Both Edema Location: Leg Type of Edema: Degree of Edema: 3+ Gastrointestinal Symptoms GI Symtoms: Nausea Tube Present: Bowel Sounds: Recent Bowel Pattern: Stool Characteristics: Nutritional Diagnosis Nutritional Risk Acuity 2: Sepsis Nutritional Risk Acuity 3: Nausea, ST I/II Pressure Ulcer Past Medical History: quadrapelegic, hx decubitis, occ anorexia, depression Nutritional Acuity: 2-Moderate Nutrition Diagnosis: Increased Nutrient Needs Nutrition Etiology: Psychological Issues Nutrition Problem/Etiology/Sym: AEB decubitis ulcer Adjusted Energy Requirement Re: 1900 (25kcal/kg) Protein Requirement: 95 (1gm/kg) Fluid Requirement: 1900 (1ml/kcal) Diet Type: Diet as Tolerated LEO/REG Nutrition Intervention: Cont diet as ordered, Encourage intake Additional Diet Restrictions: OFFER CARLOTA BRFT AND SUPPER. Nutrition Monitoring & Eval Nutrition Goals: Eat 75-100% Meal Nutrition Follow-Up: Poor Intake RD Patient Assessment Time: [address] Assessment Type: RD Assessment Patient Nutrition Acuity: 2-Moderate Follow Up Date: Jan 21, 2019 Nutritional Comment: 12/16 Pt admitted with sepsis. Pt is quadiplegic. Has decubitus to buttock. alb 2.7. Pt on reular diet but refused first meal in facility Will offer nutr supplment to increase kcal and protein intake. Will cont to monitor and encourage intake. 12/17 No new labs or wt. Pt cont to refuse meals. Pt is reporting nausea which may be affecting intake. Pt asleep when attempted to discuss intake. Cont to offer meals and supplements. Will cont to monitor and encourage intake. RUBEN WU Jan 17, 2019 13:17
[2019-01-17 14:39] VITALS: BP 133/91
--- NOTE | 2019-01-17 16:08 | NUR ---
Physical Therapy Impression Injury to skin at L) posterior thigh consistent with excoriation and denuded flesh in some areas related to incontinence. Majority of discolored skin is intact, the few open areas demo no slough, thus debridement is not indicated. This area is best treated with zinc based moisture barrier cream for protection after thorough pericare related to loose stool that pt experienced during rolling to inspect bottom. Unlikely that any dressing will stay in contact here and not become soiled or rolled, which would create a greater concern. Posterior aspect of R) thigh shows skin that was recently injured in a pattern that is consistent with excoriation related to incontinence that was allowed to rest against skin for a period of time without cleansing. Pt resistant to care, but allowed PT to complete pericare after loose stool occurred during rolling for skin inspection and placement of fresh chucks pad prior to return to supine with assist from nursing for application of zinc based moisture barrier cream after cleansing and patting dry. No debridement indicated. Pt is currently on a low air loss pressure relief mattress as she frequently refuses repositioning. Pt is instructed that pericare must be allowed more frequently due to loose stools, in order to prevent further skin breakdown related to stool or other moisture against her skin. Pt is generally resistant to care and raises her voice at staff when they attempt to turn on lights to properly evaluate skin or reposition for skin protection. No further supervisor electronics processing need as debridement is not indicated. Nursing to apply zinc based cream to excoriated and open areas after each pericare and not scrub to remove this layer after BM, but simply cleanse the area and apply another layer of cream for skin protection. Physical Therapy Goals Patient's Goals
--- NOTE | 2019-01-17 16:20 | Antimicrobial Stewardship ---
Antimicrobial Stewardship Empiricly appropriate: Yes (UTI- Sepsis) Significant PMH: Yes (suprapubic catheter, hx of UTI) Support empiric regimen: Yes (Initially on Cefepime + Vancomycin) Approriate Cultures done: Yes (Urine Cx, Blood Cx) Gram stain show Microbs: Yes (Urine Cx - GNR - e.coli sens to cefepime and ceftriaxone, GPC - pending) Serum concentration checked: Yes (Vancomycin T- 21.12 ) Comment 43 yo F who resides at [facility] with PMH of quadriplegia, suprapubic catheter who presents with AMS. She comes with a history of blood in her urine, recurrent UTIs (MRSA, VRE). Most recently history of ecoli/MRSA UTI a year ago. Of note, her oxygen sats were low in the ED, but no complaints of cough. Tmax afebrile HR 80-100s BP 100s/90s WBC 15.4-->9 Lactate 3.1-->0.9 LFTs slightly elevated UA - from suprapubic catheter--> mod blood, (+) nitrite, large leukocyte esterase, WBCs 183, Many squamous epis Urine Cx - Growing GNR -> e.coli - sens to cefepime, ceftriaxone, GPC pending (per lab--possiblities include enterococcus, viridans strep, s. pneumoniae Vanco Trough 21.12 Plan: UA from colonized suprapubic catheter, no fever, elevated WBC/lactate, may be secondary to hypoxia/dehydration/poor oral intake possibly. Hx of resist ant organisms, will d/c Vancomycin and switch cefepime to ceftiaxone (GNR = e.coli sens to ceftriaxone). GPC growing is pending, based on lab characteristics, may be strep species vs. enterococcus. Will closely follow patient and de-escalate further as appropriate. Discussed with Dr. Bradford and he is in agreement with this plan. Shania Millan, PharmD, OP SHANIA MILLAN Jan 17, 2019 16:20
[2019-01-17 19:53] VITALS: BP 120/82
[2019-01-17] MEDS ORDERED: fentaNYL 25 MCG TDSY TD SCH (21:00)
[2019-01-17] MEDS ORDERED: fentaNYL 50 MCG TDSY TD SCH (21:00)
[2019-01-17] MEDS ORDERED: PATCH REMOVAL 1 EA TP SCH (21:00)
[2019-01-17] MEDS: IMIPRAMINE HCL 10 MG TAB PO SCH (21:16)
[2019-01-17] MEDS: cefTRIAXone 2 GM VIAL IVP SCH (21:23)
[2019-01-17] MEDS: PANTOPRAZOLE SOD 40 MG TABEC PO SCH (23:22)
[2019-01-18 02:40] VITALS: BP 120/82
[2019-01-18 06:51] VITALS: BP 134/84
[2019-01-18 09:46] LABS: PLATELET COUNT, AUTOMATED 216 K/uL (150-450)
[2019-01-18] MEDS: LACTOBACILLUS ACIDOPHILUS TAB PO SCH ×2 (09:48→17:53)
[2019-01-18] MEDS: ENOXAPARIN 40 MG/0.4ML SYR SC SCH (09:48)
[2019-01-18] MEDS: BACLOFEN 10 MG TAB PO SCH ×3 (09:48→21:12)
[2019-01-18] MEDS: DULoxetine HCL 30 MG CAPCR PO SCH (09:48)
[2019-01-18] MEDS: PREGABALIN 25 MG CAP PO SCH (09:48)
[2019-01-18] MEDS: NYSTATIN 100,000 U/GM PWD 15GM TP SCH ×2 (09:49→21:13)
[2019-01-18] MEDS: DIAZEPAM 5 MG TAB PO SCH ×3 (09:49→21:12)
[2019-01-18] MEDS: OXYBUTYNIN CHL XL 5 MG TABCR PO SCH (09:49)
[2019-01-18] MEDS: POLYETHYLENE GLYCOL 17 GM PKT PO SCH (09:49)
[2019-01-18] MEDS: FLUTICASONE PROP 0.05% 16 GM SCH (09:50)
--- NOTE | 2019-01-18 10:48 | Hospitalist Progress Note ---
Subjective Progress Notes Subjective She reports some intermittent pain in her right arm. No alleviating or aggravating factors. She doesn't want an exam or Xrays. Still having abdominal pain occasionally. Not eating or drinking too much. Physical Exam Vital Signs Date Time Temp Pulse Resp B/P (MAP) Pulse Ox O2 Delivery O2 Flow Rate FiO2 01/18/19 06:51 98.1 94 17 134/84 (101) 93 Nasal Cannula 1.5 Intake and Output 01/18/19 07:00 Intake Total 1420 ml Output Total 2750 ml Balance -1330 ml Intake Oral 1320 ml IV Total 100 ml Output Urine Total 2750 ml # Bowel Movements 2 General Appearance: Alert, Awake, No Acute Distress Result Diagram: 01/18/19 0940 01/18/19 0826 Assessment and Plan Problems: (1) Sepsis Status: Resolved Assessment & Plan: She presented with AMS. Initial lactate was 3.1, but it normalized after aggressive hydration. BP was initially low, but has improved with hydration. Antibiotics for UTI. (2) Urinary tract infection Status: Acute Assessment & Plan: Her urine culture is growing E. coli and a GPC. She was on empiric treatment with cefepime and vancomycin. The vancomycin was stopped today. Now on ceftriaxone. Afebrile. BP/P stable. (3) Altered mental status Status: Resolved Assessment & Plan: Most likely due to above. (4) Decubitus skin ulcer Status: Acute Assessment & Plan: She has significant breakdown of the skin on her L posterior thigh below the gluteal fold. There is some breakdown on the R posterior thigh as well. Will have PT wound care see for recommendations. (5) Suprapubic catheter Status: Chronic Assessment & Plan: Changed upon admission. (6) Chronic pain Status: Chronic Assessment & Plan: Continue fentanyl patch 75mcg q 72 hours with Percoct for breakthrough pain. Tylenol has been ordered as well. (7) Depression with anxiety Status: Chronic Assessment & Plan: Continue duloxetine 90mg daily. (8) DVT (deep venous thrombosis) Status: Chronic Assessment & Plan: Per the EMR, the patient has hx of DVT but also has hx of GI bleed. Will place on DVT prophylaxis with Lovenox 40mg daily. (9) Quadriplegia, C5-C7, incomplete Status: Chronic Assessment & Plan: Stable. Exam Sepsis Risk: No Definite Risk Problem Qualifiers (1) Sepsis: Sepsis type: sepsis due to unspecified organism Qualified Codes: A41.9 - Sepsis, unspecified organism JOEY CARPENTER MD Jan 18, 2019 10:48
[2019-01-18] MEDS: oxyCODON/ACET (*)5/325MG (CII) 1 TAB TAB PO PRN ×2 (11:12→18:13)
[2019-01-18 13:56] VITALS: BP 118/63
[2019-01-18] MEDS: MULTIVITAMINS TAB PO SCH (14:07)
[2019-01-18] MEDS: CHOLECALCIFEROL 1000 UNIT TAB PO SCH (14:07)
[2019-01-18] MEDS: CETIRIZINE HCL 10 MG TAB PO SCH (14:10)
[2019-01-18 19:38] VITALS: BP 132/96
[2019-01-18] MEDS: IMIPRAMINE HCL 10 MG TAB PO SCH (21:12)
[2019-01-18] MEDS: PREGABALIN 75 MG CAPSULE PO SCH (21:16)
[2019-01-18] MEDS: cefTRIAXone 2 GM VIAL IVP SCH (21:27)
[2019-01-19 04:12] VITALS: BP 122/87
[2019-01-19 06:26] LABS: PLATELET COUNT, AUTOMATED 238 K/uL (150-450)
[2019-01-19 07:12] VITALS: BP 103/89
[2019-01-19] MEDS: ENOXAPARIN 40 MG/0.4ML SYR SC SCH (09:20)
[2019-01-19] MEDS: DULoxetine HCL 30 MG CAPCR PO SCH (09:20)
[2019-01-19] MEDS: NYSTATIN 100,000 U/GM PWD 15GM TP SCH ×2 (09:21→21:36)
[2019-01-19] MEDS: OXYBUTYNIN CHL XL 5 MG TABCR PO SCH (09:21)
[2019-01-19] MEDS: DIAZEPAM 5 MG TAB PO SCH ×3 (09:21→21:36)
[2019-01-19] MEDS: LACTOBACILLUS ACIDOPHILUS TAB PO SCH ×2 (09:21→17:28)
[2019-01-19] MEDS: BACLOFEN 10 MG TAB PO SCH ×3 (09:21→21:36)
[2019-01-19] MEDS: PANTOPRAZOLE SOD 40 MG TABEC PO SCH (09:21)
[2019-01-19] MEDS: POLYETHYLENE GLYCOL 17 GM PKT PO SCH (09:21)
[2019-01-19] MEDS: PREGABALIN 75 MG CAPSULE PO SCH ×2 (09:21→21:36)
[2019-01-19] MEDS: FLUTICASONE PROP 0.05% 16 GM SCH (09:22)
--- NOTE | 2019-01-19 09:34 | RADIOLOGY IMAGING REPORT ---
FACILITY: [facility] [place] PATIENT NAME: Nilo Witt : 1975 MR: [id number] V: [id number] EXAM DATE: ORDERING PHYSICIAN: MARCIE WAHL TECHNOLOGIST: Location: [facility] Patient: Nilo Witt : 1975 Visit/Account:[id number] Date of Sevice: 01/19/2019 Exam type: KUB SINGLE VIEW ABDOMEN History: Abdomen pain Comparison: January 28, 2013 Findings: Bowel gas pattern is nonspecific. There is a levoconvex scoliosis lumbar spine with extensive spondy lotic changes. Dysmorphic changes of the pelvis proximal femurs again seen. No pathologic-appearing intra-abdominal calcifications are identified. IMPRESSION: 1. Nonspecific bowel gas pattern, appearing similar to the prior study. If symptoms persist CT may be helpful Report Dictated By: Sarahi Garcia MD at 01/19/2019 9:27 AM Report E-Signed By: Sarahi Garcia MD at 01/19/2019 9:29 AM WSN:[id number]
--- NOTE | 2019-01-19 10:28 | Hospitalist Progress Note ---
Subjective Progress Notes Subjective She reports diffuse abdominal discomfort. She does still have some appetite. Physical Exam Vital Signs Date Time Temp Pulse Resp B/P (MAP) Pulse Ox O2 Delivery O2 Flow Rate FiO2 01/19/19 07:12 98.7 106 12 103/89 (94) 94 Nasal Cannula 1.5 Intake and Output 01/19/19 07:00 Intake Total 1230 ml Output Total 2225 ml Balance -995 ml Intake Oral 1230 ml Output Urine Total 2225 ml # Bowel Movements 3 General Appearance: Alert, Awake Neuro: Other (chronic quadrplegia) Cardiovascular: Regular Rate and Rhythm Respiratory: Clear to Auscultation GI: Other (slightly distended/rare BS) Extremities: Warm, Perfused, Edema Integumentary: Other (wound dressed) Psych: Alert & Oriented X3 Result Diagram: 01/19/1955601/19/19556 Assessment and Plan Problems: (1) Sepsis Onset Date: 09/25/2014 Status: Resolved Assessment & Plan: Blood cultures have shown no growth. Question if UTI with dehydration vs. sepsis. She presented with AMS. Initial lactate was 3.1, but it normalized quickly after aggressive hydration. BP was initially low, but has improved with hydration. She is on antibiotics for UTI. (2) Urinary tract infection Status: Acute Assessment & Plan: Her urine culture is growing E. coli and a GPC - yet to be identified. She was on empiric treatment with cefepime and vancomycin - which were stopped yesterday. She is now on IV ceftriaxone. She remains afebrile with normal WBC count and BP/P stable. (3) Altered mental status Status: Resolved Assessment & Plan: Most likely due to above. (4) Decubitus skin ulcer Status: Acute Assessment & Plan: She has significant breakdown of the skin on her left posterior thigh below the gluteal fold. There is some breakdown on the right posterior thigh as well. PT wound care are seeing her. (5) Suprapubic catheter Status: Chronic Assessment & Plan: Changed upon admission. (6) Chronic pain Status: Chronic Assessment & Plan: Continue fentanyl patch 75mcg q 72 hours with Percoct for breakthrough pain. Tylenol has been ordered as well. (7) Depression with anxiety Status: Chronic Assessment & Plan: Continue duloxetine 90mg daily. (8) DVT (deep venous thrombosis) Status: Chronic Assessment & Plan: Per the medical record, the patient has history of DVT, but also has history of GI bleed. She has been placed on DVT prophylaxis with Lovenox 40mg daily. (9) Quadriplegia, C5-C7, incomplete Status: Chronic Assessment & Plan: Stable. She currently resides at [facility]. (10) Abdominal pain Status: Acute Assessment & Plan: No obvious etiology. Will check abdominal films. Consider CT scan/further work up if needed. Exam Sepsis Risk: No Definite Risk Problem Qualifiers (1) Sepsis: Sepsis type: sepsis due to unspecified organism Qualified Codes: A41.9 - Sep sis, unspecified organism MARCIE WAHL MD Jan 19, 2019 10:28
[2019-01-19] MEDS ORDERED: IOPAMIDOL 76% 100 ML INFUS BTL 0 ML ONE (10:31)
[2019-01-19] MEDS ORDERED: IOPAMIDOL 76% 100 ML INFUS BTL 100 ML ONE (14:57)
[2019-01-19] MEDS: MULTIVITAMINS TAB PO SCH (15:55)
[2019-01-19] MEDS: CHOLECALCIFEROL 1000 UNIT TAB PO SCH (15:55)
[2019-01-19] MEDS: CETIRIZINE HCL 10 MG TAB PO SCH (15:55)
[2019-01-19 16:07] VITALS: BP 111/41
--- NOTE | 2019-01-19 16:08 | RADIOLOGY IMAGING REPORT ---
FACILITY: [facility] PATIENT NAME: Nilo Witt : 1975 MR: [id number] V: [id number] EXAM DATE: ORDERING PHYSICIAN: MARCIE WAHL TECHNOLOGIST: Location: [facility] [place] Patient: Nilo Witt : 1975 Visit/Account:[id number] Date of Sevice: 01/19/2019 CT ABDOMEN PELVIS W/ CON HISTORY: abdominal pain TECHNIQUE: Following administration of IV contrast contiguous axial images acquired through the abdom en/pelvis. Coronal and sagittal reformatting also performed.Dose Lowering Technique One of the following dose optimization techniques was utilized in the performance of this exam: Autom ated exposure control; adjustment of the mA and/or kV according to the patient's size; or use of an i terative reconstruction technique. Specific details can be referenced in the facility's radiology C T exam operational policy. CONTRAST: 75 mL Isovue-370 COMPARISON: February 11, 2015 FINDINGS: Visualized lung bases: Chronic Bronchial thickening and pleural parenchymal scarring the right lung base appears similar to the prio r study. This appears slightly more advanced in the left lower lobe. Hepatobiliary: Cholelithiasis although no evidence of biliary ductal dilatation. Spleen: There is a wedge-shaped area of hypoperfusion seen along the anterolateral aspect of the spl een. This was not appreciated on the prior study although the prior study was performed without cont rast. This may represent a splenic infarct Adrenals: Negative. Pancreas: Negative. Kidneys ureters or bladder: There bilateral renal hypodensities likely representing cysts. There is additional vague area of decreased attenuation along the lateral aspect of the interpolar region of t he left kidney could represent contiguous cysts, an area of scarring, an area of focal inflammation o r mass lesion. The appearance is nonspecific There are nonobstructing calculi in the left renal collecting system measuring up to 7 mm. The bladd er is decompressed by suprapubic catheter Genitalia: Negative. GI: There is a moderate amount of fecal material in the distal sigmoid colon and rectum. There is m oderate gaseous distention of the more proximal sigmoid colon There is a ventral hernia in the upper abdomen to the left of midline containing a small knuckle of gastric body. There is mild inflammatio n in the surrounding subcutaneous fat Vessels/spaces/nodes: Negative. Bones/soft tissues: As mentioned above there is a ventral hernia in the upper abdomen to the left of midline containing a knuckle of anterior gastric body mild infiltrative changes seen in the subcutan eous fat. There is a moderate size umbilical hernia also containing fat. There is marked thinning o f the rectus sheath with an additional ventral hernia in the lower pelvis containing fat. There is a levoconvex scoliosis lumbar spine with associated spondylotic changes. 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 IMPRESSION: Bronchial thickening and pleural parenchymal scarring in the right lung base appears well totally unc hanged although is slightly more advanced in the left lower lobe Cholelithiasis although no evidence for ductal dilatation Wedge-shaped area of hypoperfusion along the anterolateral spleen not appreciated on the prior study and may represent an infarct Bilateral renal cysts. There is an additional vague area of decreased attenuation along the lateral aspect interpolar region of the left kidney which could represent contiguous cysts, an area of scarri ng, and the area of focal inflammation or mass lesion. The appearance is nonspecific. If further im aging is desired MR may be helpful Moderate amount of fecal material distal sigmoid colon and rectum. There is moderate gaseous distent ion of the more proximal sigmoid colon Multiple ventral hernias in the anterior abdominal pelvic wall. The uppermost ventral hernia just to left of midline contain a small knuckle of gastric body. This mild inflammation the surrounding treadwell bcutaneous fat Report Dictated By: Sarahi Garcia MD at 01/19/2019 3:42 PM Report E-Signed By: Sarahi Garcia MD at 01/19/2019 4:04 PMWSN:[id number]
[2019-01-19] MEDS: oxyCODON/ACET (*)5/325MG (CII) 1 TAB TAB PO PRN (18:13)
[2019-01-19 20:32] VITALS: BP 97/78
[2019-01-19] MEDS: IMIPRAMINE HCL 10 MG TAB PO SCH (21:36)
[2019-01-19] MEDS: cefTRIAXone 2 GM VIAL IVP SCH (21:50)
[2019-01-20 03:30] VITALS: BP 116/81
[2019-01-20] MEDS: oxyCODON/ACET (*)5/325MG (CII) 1 TAB TAB PO PRN (03:40)
[2019-01-20 08:03] VITALS: BP 112/83
[2019-01-20] MEDS: DULoxetine HCL 30 MG CAPCR PO SCH (09:10)
[2019-01-20] MEDS: OXYBUTYNIN CHL XL 5 MG TABCR PO SCH (09:10)
[2019-01-20] MEDS: BACLOFEN 10 MG TAB PO SCH (09:10)
[2019-01-20] MEDS: LACTOBACILLUS ACIDOPHILUS TAB PO SCH (09:10)
[2019-01-20] MEDS: NYSTATIN 100,000 U/GM PWD 15GM TP SCH (09:11)
[2019-01-20] MEDS: PREGABALIN 75 MG CAPSULE PO SCH (09:11)
[2019-01-20] MEDS: FLUTICASONE PROP 0.05% 16 GM SCH (09:11)
[2019-01-20] MEDS: DIAZEPAM 5 MG TAB PO SCH (09:11)
[2019-01-20] MEDS: POLYETHYLENE GLYCOL 17 GM PKT PO SCH (09:11)
[2019-01-20] MEDS: ENOXAPARIN 40 MG/0.4ML SYR SC SCH (09:12)
[2019-01-20] MEDS ORDERED: ACETAMINOPHEN 500 MG TAB PO PRN (09:45)
[2019-01-20] MEDS ORDERED: CEF300 PO (09:47)
--- NOTE | 2019-01-20 10:02 | Hospitalist Depart ---
Discharge Summary Reason for Hosp/Final Diag: (1) Urinary tract infection Status: Acute Hospital Course & Plan: Her urine culture is growing E. coli and Aerococcus urinae. She was on empiric treatment with cefepime and vancomycin - which were stopped yesterday. Ceftriaxone started with conversion to cefdinir to complete 10d therapy. (2) Hypoxia Hospital Course & Plan: On 2L, will send home with same. Possible central apnea from medication regimen, recommend reevaluate when follow up with PCP. (3) Altered mental status Status: Resolved Hospital Course & Plan: Most likely due multiple centrally acting medications, recommend follow up with PCP to evaluate medication regimen. (4) Sepsis Onset Date: 09/25/2014 Status: Resolved Hospital Course & Plan: Resolved. Blood cultures have shown no growth. Question if UTI with dehydration vs. sepsis vs metabolic encephalopathy from medication. She presented with AMS. Initial lactate was 3.1, but it normalized quickly after aggressive hydration. BP was initially low, but has improved with hydration. (5) Decubitus skin ulcer Status: Acute Hospital Course & Plan: She has significant breakdown of the skin on her left posterior thigh below the gluteal fold. There is some breakdown on the right pos terior thigh as well. Continue wound care. (6) Suprapubic catheter Status: Chronic Hospital Course & Plan: Changed upon admission. (7) Chronic pain Status: Chronic Hospital Course & Plan: Continue fentanyl patch 75mcg q 72 hours with Percoct for breakthrough pain. Tylenol has been ordered as well. (8) Depression with anxiety Status: Chronic Hospital Course & Plan: Continue duloxetine 90mg daily. (9) DVT (deep venous thrombosis) Status: Chronic Hospital Course & Plan: Per the medical record, the patient has history of DVT, but also has history of GI bleed. (10) Quadriplegia, C5-C7, incomplete Status: Chronic Hospital Course & Plan: Stable. She currently resides at [facility]. (11) Abdominal pain Status: Acute Hospital Course & Plan: No obvious etiology. Will check abdominal films. CT showed no definitive cause, questionable splenic infarct. Improving and per patient seems to be chronic. Departure Weight (Pounds): 211 Weight (Ounces): 4.0 Result Diagram: 01/19/1957 01/19/19556 Condition: Improved Discharge: Half-Way Discharge Instructions Home Meds Active Scripts Cefdinir 300 Mg Cap (OMNICEF 300 MG CAP (OR EQUIV)) 300 Mg Cap, 300 MG PO BID for 3 Days, #7 CAP Prov:WANDA KATZ DO 01/20/19 Diazepam (DIAZEPAM) 5 Mg Tablet, 5 MG PO TID, #90 TAB 2 Refills Prov:ESTELITA RICHARDS APRN-C 01/06/19 Fentanyl (Fentanyl) 1 Each Patch.td72, 75 MCG TD Q72H, #10 PATCH.72H Prov:ESTELITA RICHARDS APRNP-C 01/04/19 Oxycodone Hcl/Acetaminophen (OXYCODONE-ACETAMINOPHEN 5-325) 1 Each Tablet, 1 EACH PO QID PRN for pain, #120 TAB Prov:ESTELITA RICHARDS APRN-C 12/17/18 Pregabalin (LYRICA) 75 Mg Capsule, 1 CAP PO BID, #60 CAPSULE 5 Refills Prov:ESTELITA RICHARDS APRN-C 11/29/18 Belladonna Alkaloids/Opium (BELLADONNA-OPIUM 16.2-30 SUPP) 30 Mg Supp, 30 MG NV BID PRN for pain/spasm, #60 SUPP Prov:ESTELITA RICHARDS APRN-Rolf 11/15/18 Meloxicam (MELOXICAM) 7.5 Mg Tablet, 7.5 MG PO QDAY PRN for pain, #0 Prov:JOEY CARPENTER MD 03/28/16 Reported Medications Sodium Fluoride (PREVIDENT 5000 PLUS) 51 Gm Cream..g., GM DT DIRECTED Apply paste per toothbrush bid. 01/15/19 Triamcinolone Acetonide (Nasacort) 10.8 Ml Etters, 2 SPRAY NA DAILY 01/15/19 Duloxetine HCl (Duloxetine HCl) 30 Mg Capsule.dr, 3 CAP PO DAILY 01/15/19 Lactobacillus Combo No.13 (Probiotic Pearls Complete) 1 Each Capsule.dr, 2 CAP PO BID 01/15/19 Baclofen (BACLOFEN) 20 Mg Tablet, 20 MG PO TID, #15 TAB 01/15/19 Medroxyprogesterone Acet 150 Mg (DEPO-PROVERA 150 MG) 150 Mg/1 Ml Disp.syrin, 150 MG IM [id number], DIS.SYR EVERY 3 MONTHS 01/15/19 Chlorhexidine Gluconate (Peridex) 0.12 % Mouthwash, ASDIRECTED Dip toothbrush in solution at night and brush teeth again after brushing with toothpaste. 01/15/19 Cetirizine Hcl (CETIRIZINE HCL) 5 Mg Tablet, 5 MG PO QDAY, TAB 01/15/19 Miconazole Nitrate (DIANNA ANTIFUNGAL) 142 Gm Cream..g., 1 EMMANUEL TP BID 12/24/17 Imipramine Hcl (IMIPRAMINE HCL) 10 Mg Tablet, 20 MG PO HS 06/07/17 Multivitamin With Minerals (MULTIPLE VITAMIN) 1 Each Tablet, 1 EACH PO QDAY, TAB 06/07/17 Cholecalciferol (Vitamin D3) (VITAMIN D3) 1,000 Unit Tablet, 2000 UNIT PO QDAY, TAB 06/07/17 Bisacodyl (DULCOLAX) 10 Mg Supp.rect, 10 MG RC QODAY PRN for CONSTIPATION, SUPP.RECT 03/26/16 Acetaminophen (TYLENOL) 325 Mg Tablet, 650 MG PO BID PRN for PAIN, TAB 03/26/16 Oxybutynin Chloride (OXYBUTYNIN CHLORIDE ER) 5 Mg Tab.er.24, 5 MG PO QDAY, TAB.SA 03/26/16 Nystatin (NYSTOP) 60 Gm Powder, 1 GM TP PRN for irritation Apply to affected areas topically as needed for irritation. 09/25/14 Polyethylene Glycol 3350 (MIRALAX) 17 Gm Powd.pack, 17 GM PO DAILY 09/25/14 Omeprazole (OMEPRAZOLE) 20 Mg Capsule.dr, 1 CAP PO Q THU-THU-THU TAKE ONE CAPSULE BY MOUTH ONCE A DAY 05/30/13 Discontinued Reported Medications Cetirizine Hcl (ZYRTEC) 10 Mg Tablet, 5 MG PO QDAY, TAB 12/24/17 Ondansetron (ZOFRAN ODT) 4 Mg Tab.rapdis, 4 MG PO PRN, TAB.KWADWO 07/13/17 Medroxyprogesterone Acet 150 Mg (DEPO-PROVERA 150 MG) 150 Mg/1 Ml Disp.syrin, 150 MG IM 07/13/17 Duloxetine Hcl (CYMBALTA) 60 Mg Capsule.dr, 60 MG PO QDAY, #5 CAP 03/24/16 Lactobacillus Acidophilus (Acidophilus) 100 Mg (1 Billion Cell) Capsule, 1 TAB PO BID 10/26/15 Baclofen (Lioresal) 10 Mg Tab, 20 MG PO TID 09/01/12 Diet: Regular Activity: As Tolerated Special Instructions: Take cefdinir begining tonight then twice daily in am and pm until gone. Started on O2, needing 2L to maintain saturation. Recommend follow up with PCP to evaluate medication regimen given multiple centrally acting medications. Copies to: ESTELITA RICHARDS APRN IT PROGRAM AUDITOR-C ; Venous Thromboembolism Antithrombotics Is Pt On Any Antithrombotics?: Yes Problem Qualifiers (1) Sepsis: Sepsis type: sepsis due to unspecified organism Qualified Codes: A41.9 - Sepsis, unspecified organism WANDA KATZ DO Jan 20, 2019 10:02
[2019-01-20] MEDS: CETIRIZINE HCL 10 MG TAB PO SCH (10:46)
[2019-01-20] MEDS: CHOLECALCIFEROL 1000 UNIT TAB PO SCH (10:46)
[2019-01-20] MEDS: MULTIVITAMINS TAB PO SCH (10:46)
== END 2019-01-20 11:10 | disposition home or self-care (01) | DRG 871 ==
LOC: ER 18:34 → MED 20:04
PROVIDERS: ADMIT Internal Medicine; ATTEND Internal Medicine
DX: A41.51 Sepsis due to Escherichia coli [E. coli] (principal); G82.54 Quadriplegia, C5-C7 incomplete; N39.0 Urinary tract infection, site not specified; R09.02 Hypoxemia; G89.29 Other chronic pain; F41.8 Other specified anxiety disorders; E87.5 Hyperkalemia; L89.322 Pressure ulcer of left buttock, stage 2; L89.312 Pressure ulcer of right buttock, stage 2; Z88.2 Allergy status to sulfonamides; Z88.0 Allergy status to penicillin; Z88.8 Allergy status to other drugs, medicaments and biological substances; Z86.14 Personal history of Methicillin resistant Staphylococcus aureus infection; Z87.891 Personal history of nicotine dependence; Z86.718 Personal history of other venous thrombosis and embolism
CPT/HCPCS: 36415; 71045; 74018; 74177; 80202; 81001; 82040; 82247; 82310; 82374; 82435; 82565; 82947; 83605; 83690; 84075; 84132; 84155; 84295; 84450; 84460; 84520; 85025; 87040; 87077; 87088; 87186; 96361; 96365; 96367; 97161; 99284; J0131; J0692; J0696; J1650; J2550; J3370; J7030; J7040; J7050; Q9967

== ENCOUNTER → 2019-01-15 | Outpatient (CLI) | payer MEDICARE, MEDICAID ==
[~2019-01-15] MED LIST changes: +BACL-51 PO; +CEF300 PO; +CETI5TAB25 PO; +CHLO473M14 ASDIRECTED; +DULO30CA6 PO; +LACT1CAP17 PO; -OMEP-125 PO; +OMEP-126 PO; +SODI51CR DT; +TRIA10.8
[2019-01-16 12:03] VITALS: BMI 38.6
== END ==
LOC: AMB 18:06
PROVIDERS: ATTEND Nurse Practitioner
DX: R41.82 Altered mental status, unspecified (principal); R09.02 Hypoxemia
CPT/HCPCS: A0425; A0427

== ENCOUNTER → 2019-01-20 | Outpatient (CLI) | payer MEDICARE, MEDICAID ==
[2019-01-16 12:03] VITALS: BMI 38.6
[~2019-01-20] MED LIST changes: +BACL-51 PO; +CEF300 PO; +CETI5TAB25 PO; +CHLO473M14 ASDIRECTED; +DULO30CA6 PO; +LACT1CAP17 PO; +SODI51CR DT; +TRIA10.8
== END ==
LOC: AMB 10:57
PROVIDERS: ATTEND Nurse Practitioner
DX: G82.50 Quadriplegia, unspecified (principal)
CPT/HCPCS: A0425; A0428

== ENCOUNTER → 2019-02-02 | Outpatient (REF) | payer MEDICARE, MEDICAID ==
[2019-01-16 12:03] VITALS: BMI 38.6
[2019-02-02 16:16] LABS: PLATELET COUNT, AUTOMATED 377 K/uL (150-450)
== END ==
LOC: ZZLCC 15:24
PROVIDERS: ATTEND Nurse Practitioner Family
DX: M62.838 Other muscle spasm (principal); N39.0 Urinary tract infection, site not specified; A41.9 Sepsis, unspecified organism
CPT/HCPCS: 82040; 82247; 82310; 82374; 82435; 82565; 82947; 83735; 84075; 84132; 84155; 84295; 84450; 84460; 84520; 85025

== ENCOUNTER → 2019-02-23 | Outpatient (REF) | payer MEDICARE, MEDICAID ==
[2019-01-16 12:03] VITALS: BMI 38.6
[2019-02-23 18:24] LABS: PLATELET COUNT, AUTOMATED 313 K/uL (150-450)
== END ==
LOC: ZZLCC 17:44
PROVIDERS: ATTEND Nurse Practitioner Family
DX: L53.9 Erythematous condition, unspecified (principal)
CPT/HCPCS: 84132; 85025; 86140